=== PATIENT | male | born 1975 | race Caucasian/White ===

== ENCOUNTER 2025-07-05 19:22 | Inpatient (IN) | payer OTHER ==
[~2025-07-05] VITALS: Ht 165.1 cm; Wt 69.5 kg
[2025-07-05 19:24] VITALS: O2SAT 99
[2025-07-05] MEDS: NITROGLYCERIN 0.4MG TABLET SL SL ONE (20:17)
[2025-07-05 21:30] LABS: BASOPHILS % 1.0 % (0.0-2.0); EOSINOPHILS % 5.3 % (0.0-5.0); HEMATOCRIT. 40.7 % (42.0-52.0); HEMOGLOBIN. 14.0 g/dL (14.0-18.0); LYMPHOCYTES % 34.2 % (20.0-50.0); MEAN PLATELET VOLUME 8.2 fl (7.4-10.4); MONOCYTES % 7.6 % (2.0-8.0); NEUTROPHILS % 51.9 % (40.0-76.0); PLATELET 299 x1000/uL (130-400); RED BLOOD CELL COUNT 4.69 mill/uL (4.7-6.1); RED CELL DISTRIBUTION WIDTH 13.1 % (11.6-14.6)
[2025-07-05 21:35] LABS: CREATININE 0.8 mg/dL (0.6-1.3); UREA NITROGEN BLOOD 12 mg/dL (9-23)
[2025-07-05 21:36] LABS: TROPONIN I HIGH SENSITIVITY 5 ng/L (3.0-53)
[2025-07-05 21:37] LABS: ASPARTATE AMINOTRANSFERASE 18 IU/L (<34); BILIRUBIN DIRECT 0.2 mg/dL (<=3.0); BILIRUBIN TOTAL 0.5 mg/dL (0.1-1.0); PROTEIN TOTAL 6.7 g/dL (6.0-8.3)
[2025-07-05] MEDS ORDERED: DIPHENHYDRAMINE 50MG/ML VIAL IV PRN (22:15)
[2025-07-05] MEDS ORDERED: GUAIFENESIN 200MG/10ML SUGAR FREE UDC PO PRN (22:15)
[2025-07-05] MEDS ORDERED: ACETAMINOPHEN 325MG TABLET PO PRN ×2 (22:15)
[2025-07-05] MEDS ORDERED: MAGNESIUM/ALUMINUM HYDROXIDE/SIMETHICONE 30ML UDC PO PRN (22:15)
[2025-07-05] MEDS ORDERED: ONDANSETRON HCL 4MG/2ML INJ IV PRN (22:15)
[2025-07-05] MEDS ORDERED: DOCUSATE SODIUM 100MG CAPSULE PO PRN (22:15)
[2025-07-05] MEDS ORDERED: IPRATROPIUM/ALBUTEROL 0.5-3(2.5)MG/3ML NEB HHN PRN (22:15)
[2025-07-05 22:57] LABS: CLARITY URINE CLEAR (CLEAR); COLOR URINE YELLOW (YELLOW); GLUCOSE URINE NEGATIVE (NEGATIVE); KETONES URINE NEGATIVE (NEGATIVE); LEUKOCYTE ESTERASE URINE NEGATIVE (NEGATIVE); NITRITE URINE NEGATIVE (NEGATIVE); OCCULT BLOOD URINE NEGATIVE (NEGATIVE); PH URINE 6.0 (4.5-8.0); PROTEIN URINE NEGATIVE (NEGATIVE); SPECIFIC GRAVITY URINE 1.025 (1.005-1.030); UROBILINOGEN URINE 0.2 E.U./dL (0.2-1.0)
[2025-07-05 23:08] LABS: *AMPHETAMINES SCREEN URINE PRESUMPTIVE POSITIVE (NEGATIVE); *BARBITURATES SCREEN URINE NEGATIVE (NEGATIVE); *BENZODIAZEPINES SCREEN URINE NEGATIVE (NEGATIVE); *COCAINE SCREEN URINE NEGATIVE (NEGATIVE); CANNABINOID URINE SCREEN NEGATIVE (NEGATIVE); METHADONE URINE SCREEN NEGATIVE (NEGATIVE); OPIATES URINE SCREEN NEGATIVE (NEGATIVE); PHENCYCLIDINE URINE SCREEN NEGATIVE (NEGATIVE)
[2025-07-05 23:09] LABS: ECSTASY MDMA SCREEN URINE CONF.TEST INDICATED (NEGATIVE)
[2025-07-06] VITALS (7 sets, daily range): BP systolic 118–168; BP diastolic 83–91; PULSE 64–82; RESP 18–20; TEMP 36.2–36.8; O2SAT 98–100
[2025-07-06 00:17] LABS: TROPONIN I HIGH SENSITIVITY 4 ng/L (3.0-53)
[2025-07-06] MEDS: CLONIDINE 0.1MG TABLET PO PRN (00:19)
[2025-07-06] MEDS: NITROGLYCERIN 0.4MG TABLET SL SL PRN (00:20)
[2025-07-06] MEDS: PANTOPRAZOLE SODIUM 40 MG/VIAL IV SCH (03:11)
[2025-07-06] MEDS: LISINOPRIL 5MG TABLET PO SCH (03:12)
[2025-07-06 06:25] LABS: BASOPHILS % 0.8 % (0.0-2.0); EOSINOPHILS % 5.7 % (0.0-5.0); HEMATOCRIT. 40.3 % (42.0-52.0); HEMOGLOBIN. 13.7 g/dL (14.0-18.0); LYMPHOCYTES % 39.1 % (20.0-50.0); MEAN PLATELET VOLUME 8.5 fl (7.4-10.4); MONOCYTES % 6.8 % (2.0-8.0); NEUTROPHILS % 47.6 % (40.0-76.0); PLATELET 271 x1000/uL (130-400); RED BLOOD CELL COUNT 4.57 mill/uL (4.7-6.1); RED CELL DISTRIBUTION WIDTH 13.4 % (11.6-14.6)
[2025-07-06 06:45] LABS: CREATININE 0.6 mg/dL (0.6-1.3); TRIGLYCERIDE 80 mg/dL (0-150); UREA NITROGEN BLOOD 9 mg/dL (9-23)
[2025-07-06 06:46] LABS: LDL CHOLESTEROL 52 mg/dL (5-100)
[2025-07-06 06:48] LABS: T4 FREE 1.21 ng/dL (0.89-1.76)
[2025-07-06 07:25] LABS: CREATINE KINASE MB FRACTION 2.0 ng/mL (0.5-3.6)
[2025-07-06] MEDS: ASPIRIN 81MG TABLET PO SCH (09:31)
[2025-07-06 09:54] LABS: TROPONIN I HIGH SENSITIVITY 5 ng/L (3.0-53)
[2025-07-07] VITALS: BP 132/89; PULSE 65; RESP 17; TEMP 36.8; O2SAT 99
[2025-07-07 04:00] VITALS: BP 128/83; PULSE 76; RESP 18; TEMP 36.1; O2SAT 100
[2025-07-07 08:00] VITALS: BP 145/82; PULSE 78; RESP 18; TEMP 36.5; O2SAT 100
[2025-07-07] MEDS ORDERED: PROT40 MT (09:17)
[2025-07-07] MEDS ORDERED: LISI-186 PO (09:25)
[2025-07-07 10:38] VITALS: BP 146/84; PULSE 60; RESP 16; TEMP 98
[2025-07-07] MEDS ORDERED: LISI-186 MT (12:51)
[2025-07-07] MEDS ORDERED: PANT40TA51 MT (12:51)
== END 2025-07-07 12:10 | disposition home or self-care (01) | DRG 918 ==
LOC: ER 19:22 → EDBD 19:22 → 7WST 21:57 → EDBEDREQ 22:27 → EDBEDREQTM 22:27 → ENRESERV 22:51
PROVIDERS: ADMIT Student in an Organized Health Care Education/Training Program; ATTEND Student in an Organized Health Care Education/Training Program
DX: T43.651A Poisoning by methamphetamines accidental (unintentional), initial encounter (principal); F15.10 Other stimulant abuse, uncomplicated; I10 Essential (primary) hypertension; F17.210 Nicotine dependence, cigarettes, uncomplicated; F19.90 Other psychoactive substance use, unspecified, uncomplicated; T43.641A Poisoning by ecstasy, accidental (unintentional), initial encounter; Y92.89 Other specified places as the place of occurrence of the external cause
CPT/HCPCS: 36415; 71045; 80048; 80061; 80076; 80305; 81003; 82550; 82553; 83036; 83735; 83880; 84439; 84443; 84484; 85025; 85379; 93005; 99285; A4606; J2470